=== PATIENT | female | born 1995 | race Two or more races ===

== ENCOUNTER 2022-03-07 18:38 | Emergency (ER) | payer OTHER ==
[~2022-03-07] VITALS: Ht 160 cm; Wt 59.0 kg
[~2022-03-07 18:38] MED LIST: PEPCID20 MG PO; PRENATAL TABLE1 EAC1 PO; ZOFRAN4 MG SL
[2022-03-07] MEDS ORDERED: PRENATABS FA T1 EACH PO (19:06)
== END 2022-03-08 00:28 | disposition home or self-care (01) ==
LOC: ER 18:38
DX: J06.9 Acute upper respiratory infection, unspecified (principal); Z20.822 Contact with and (suspected) exposure to COVID-19

== ENCOUNTER 2022-08-17 09:52 | Inpatient (IN) | payer OTHER ==
[~2022-08-17] VITALS: Ht 160 cm; Wt 3.2 kg
[~2022-08-17 09:52] MED LIST changes: +PRENATABS FA T1 EACH PO
== END 2022-08-23 12:42 | disposition home or self-care (01) | DRG 785 ==
LOC: OB/GYN 08-20 06:10 → O/R 08-20 06:10 → OB/GYN 08-20 09:15
PROVIDERS: ADMIT Obstetrics & Gynecology; ATTEND Obstetrics & Gynecology
PROC: 0UB70ZZ Excision of Bilateral Fallopian Tubes, Open Approach (ICD-10-PCS; 2022-08-20)
PROC: 4A1HXCZ Monitoring of Products of Conception, Cardiac Rate, External Approach (ICD-10-PCS; 2022-08-20)
PROC: 10D00Z1 Extraction of Products of Conception, Low, Open Approach (ICD-10-PCS; principal; 2022-08-20 10:30)
DX: O34.211 Maternal care for low transverse scar from previous cesarean delivery (principal); Z30.2 Encounter for sterilization; Z3A.39 39 weeks gestation of pregnancy; Z37.0 Single live birth; Z20.822 Contact with and (suspected) exposure to COVID-19